=== PATIENT | female | born 1995 | race Caucasian/White ===

== ENCOUNTER → 2021-05-06 11:28 | Outpatient (CLI) | payer BC, SELFPAY ==
[2021-05-06 12:22] LABS: Urine Pregnancy, HCG Qual. Negative (Negative)
== END ==
PROVIDERS: Visit Provider Internal Medicine Gastroenterology
DX: Z01.812 Encounter for preprocedural laboratory examination (principal); Z11.52 Encounter for screening for COVID-19; Z13.810 Encounter for screening for upper gastrointestinal disorder
CPT/HCPCS: 81025; U0003

== ENCOUNTER 2021-05-08 07:14 | Day surgery (SDC) | payer BC, SELFPAY ==
[2021-05-04 11:21] VITALS: BMI 25.7
[2021-05-08] VITALS (7 sets, daily range): BP systolic 109–134; BP diastolic 59–91; PULSE 71–97; RESP 18–22; TEMP 36.3–36.9; O2SAT 97–100
--- NOTE | 2021-05-08 08:03 | P.PN_ITS ---
[facility] Anesthesia Checklist - Patient Identification Patient Identification: Arm Band, Verbal (Name & ) - Structural Data Admitted From: Home Planned Operative Procedure/s: egd Consent for Planned Operative Procedure(s) Verified: Yes - NPO Status Verified Time NPO: 00:00 - Additional verifications Patient : No Anesthesia Reactions: No Hx Blood Transfusions: No Blood Transfusion Reaction: No Cephalosporin Allergy: No Previous Colonoscopy: No - Cardiovascular Assessment Heart Sounds: S1 & S2 Pulse Strength: Baseline Pulse Rhythm: Regular Peripheral Edema: No - Airway Assessment C-Spine Mobility Assessed: Yes TMJ Mobility Assessed: Yes Dentition: Good Dentition - Neurological Assessment Level of Consciousness: Awake, Alert, Appropriate Hx Seizures: No Numbness or tingling in extremities: No - Anesthesia Plan Anesthesia Risk discussed: Yes Anesthesia Plan: Verified ASA Class: I Anesthesia Type: MAC [facility] History I have reviewed the patient's past medical history: Yes Medical History: Denies:: Cancer, Diabetes Mellitus Type 1, Diabetes Mellitus Type 2, Internal Pacemaker, MRSA, Seizures *Have you ever received a pneumonia vaccine?: No *Have you received a flu vaccine this season?: No Anesthesia experience/problems:: none Other Surgeries: No: Pacemaker Amputation: No Fractures: No - *Social History Last grade of school completed: High school graduate Smoking Status: Unknown if ever smoked Alcohol Intake: current Alcohol Intake Frequency:: a few times a month Substance Use Type: other *Occupational Status:: employed *Travel in the last 8 weeks: None Family Hx:: Other
--- NOTE | 2021-05-08 08:43 | HMH.PROC ---
[facility] Procedure Note Procedure Note:: Upper Endoscopy Procedure Report: Esophagogastroduodenoscopy with cold biopsies Endoscopost: Demarcus Mack II, MD Referring Physician: Esther Acosta DO Date of Procedure: May 08, 2021 Equipment: Olympus GIF 190 standard upper endoscope Sedation: MAC sedation Indications: Mrs. Cotto is a 25-year-old female who is here for diagnostic upper endoscopy secondary to esophageal chest pain (noncardiac chest pain), reflux and dyspepsia. She does report epigastric and some generalized abdominal discomfort, bloating and occasional nausea. She has some early satiety. She reports no belching. She does get occasional globus sensation. She does note IBS constipation. She does have some stress or nervousness she can have bowel urgency. She also saw her dentist and had tooth and tongue discoloration that was presumably secondary to gastroesophageal reflux. She continues to have reflux and chest pain. Her cardiac evaluation last year showed normal EKG and echocardiogram. She does get some left upper quadrant abdominal pain and discomfort. She did have a brief spell of bloody mucus with her bowel movements. She reports no melena or weight loss. This is her first upper endoscopy. Procedure: Prior to the procedure, a history and physical exam was performed, and patient's medications and allergies were reviewed. The risks, benefits and alternatives of the sedation and procedure were discussed with the patient. All questions were answered and informed consent was obtained. The patient was brought to the procedure room. Patient identification and proposed procedure were verified by the physician and the nurse. The patient was placed in a left lateral decubitus position and the scope was passed under direct vision. Throughout the procedure, the patient's blood pressure, pulse, and oxygen saturations were monitored continuously. The upper GI endoscopy was accomplished without difficulty. The patient tolerated the procedure well. Findings: The scope was passed directly into the upper esophagus and advanced to the third portion of the duodenum. The post bulbar duodenum and duodenal bulb were normal with normal mucosa and conniventes. The scope was withdrawn through a normal duodenal bulb and pylorus into the stomach. There was bile reflux with linear reactive gastropathy of the antrum. The remainder of the body and fundus of the stomach were grossly normal. Upon retroflexion there was no hiatal hernia. 2 biopsies were taken in the antrum and along the lesser curvature for histology to rule out gastritis and/or H pylori. The scope was then withdrawn into the esophagus. There was a serrated Z-line and biopsies were taken at the GE junction. There was no evidence of reflux esophagitis or Treadwell's. There was no Schatzki's ring. There were tertiary contractions and evidence of moderate esophageal dysmotility. The entire esophagus was dilated to 60 [place]/20 mm with a TTS hydrostatic balloon. There was some resistance at the cricopharyngeus. The remainder of the esophageal mucosa was normal. Impression: 1. Nonerosive GERD with moderate esophageal dysmotility 2. Bile reflux with mild linear reactive gastropathy Plan: I will follow-up the biopsies. I do feel that the patient has functional dyspepsia and functional GERD with esophageal spasm/dyskinesia. We will discuss additional dietary measures and treatment. I would consider promotility therapy and treatment for visceral sensitivity.
== END 2021-05-08 09:53 | disposition home or self-care (01) ==
PROVIDERS: PCP Family Medicine; Visit Provider Internal Medicine Gastroenterology
PROC: 0DJ08ZZ Inspection of Upper Intestinal Tract, Via Natural or Artificial Opening Endoscopic (ICD-10-PCS; CPT 43235; principal; 2021-05-08 08:30)
DX: K21.9 Gastro-esophageal reflux disease without esophagitis (principal); K22.4 Dyskinesia of esophagus; K31.9 Disease of stomach and duodenum, unspecified; F41.9 Anxiety disorder, unspecified; K58.9 Irritable bowel syndrome, unspecified; Z79.899 Other long term (current) drug therapy
CPT/HCPCS: 43239; 43249; C1726